=== PATIENT | male | born 2000 | race African-American/Black ===

== ENCOUNTER 2020-11-19 11:59 | Emergency (ER) | payer OTHER, BC, SELFPAY ==
[2020-11-19 12:14] VITALS: BP 160/90; BP 97/62; PULSE 100; PULSE 90; RESP 16; TEMP 35.7; O2SAT 97; BMI 20.5
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
[2020-11-19 12:49] LABS: Glucose Urine UA NEG (NEG); Leukocyte Esterase Urine NEG (NEG); Nitrite Urine NEG (NEG); Specific Gravity - Urine >= 1.030 (1.005-1.025); Urine Blood TRACE (NEG); Urine Ketones NEG (NEG); Urine Protein 1+ MG/DL (NEG-TRACE)
[2020-11-19 12:51] LABS: Appearance Urine CLEAR; Color Urine YELLOW
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
[2020-11-19 13:01] LABS: UACC CULT YES
[2020-11-19 13:02] LABS: Bacteria Urine TRACE /LPF; Mucus Urine 1+ /LPF; RBC Urine 0-2 /HPF (0); Sperm Urine NOTED; Squamous Epithelial Cell Urine TRACE /LPF
[2020-11-19 13:18] LABS: Ethanol < 10 mg/dL
[2020-11-19 13:21] LABS: Amphetamine Screen Urine Not Detected (Not Detect); Barbiturates, Urine Not Detected (Not Detect); Benzodiazepines Screen Urine Not Detected (Not Detect); Cannabinoid Screen Urine POSITIVE (Not Detect); Cocaine Screen Urine Not Detected (Not Detect); Opiate Screen Urine Not Detected (Not Detect); Phencyclidine Screen Urine Not Detected (Not Detect)
[2020-11-19 14:05] VITALS: BP 137/70; PULSE 82
--- NOTE | 2020-11-19 14:05 | PC.NURSE ---
RETURN FROM CT
== END 2020-11-19 15:18 | disposition home or self-care (01) ==
PROVIDERS: Physician Assistant; Emergency Provider Emergency Medicine
DX: R56.9 Unspecified convulsions (principal); M54.2 Cervicalgia; G44.309 Post-traumatic headache, unspecified, not intractable
CPT/HCPCS: 36415; 70450; 72125; 80307; 80320; 81001; 87086; 99284

== ENCOUNTER 2020-11-24 10:56 | Outpatient (REF) | payer OTHER, SELFPAY ==
[2020-11-24 11:34] LABS: Appearance Urine CLEAR; Color Urine YELLOW; Glucose Urine UA NEG (NEG); Leukocyte Esterase Urine NEG (NEG); Nitrite Urine NEG (NEG); PH 6.5 (5.0-8.0); Urine Blood NEG (NEG); Urine Ketones NEG (NEG); Urine Protein NEG (NEG-TRACE)
[2020-11-24 12:14] LABS: Alanine Aminotransferase 17 U/L (0-40); Albumin Level 4.7 g/dL (3.5-5.0); Alkaline Phosphatase 114 U/L (39-117); Anion Gap 11 (12-20); Aspartate Amino Transferase 21 U/L (5-37); Bilirubin Direct 0.2 mg/dL (0.0-0.5); Bilirubin Total 0.5 mg/dL (0.0-1.0); Blood Urea Nitrogen 11 mg/dL (9-16); Calcium 9.3 mg/dL (8.4-10.2); Carbon Dioxide 31 mmol/L (22-29); Chloride 103 mmol/L (96-108); Estimated Glomerular Filt Rate > 60; Glucose Random 95 mg/dL (60-115); Potassium 4.7 mmol/L (3.3-5.1); Sodium 140 mmol/L (135-145); Total Protein 7.8 g/dL (6.5-8.0)
[2020-11-24 12:23] LABS: Syphilis Screen Nonreactive (Nonreactive)
[2020-11-24 12:27] LABS: Erythrocyte Sedimentation Rate 2 MM/HR (0-15)
[2020-11-25 09:12] LABS: Lyme Abs Screen <0.90 index
== END 2020-11-24 10:57 | disposition home or self-care (01) ==
LOC: HO.LAB 10:56
PROVIDERS: PCP Pediatrics; Visit Provider Psychiatry & Neurology Neurology
DX: G40.209 Localization-related (focal) (partial) symptomatic epilepsy and epileptic syndromes with complex partial seizures, not intractable, without status epilepticus (principal)
CPT/HCPCS: 36415; 80048; 80076; 81003; 85652; 86618; 86780

== ENCOUNTER 2020-12-03 17:57 | Outpatient (REF) | payer BC, OTHER, SELFPAY ==
--- NOTE | ~2020-12-03 | MR_ITS ---
EXAMINATION: MR BRAIN WITHOUT AND WITH CONTRAST CLINICAL INFORMATION: Temporal lobe epilepsy. COMPARISON: Head CT 11/19/2020. TECHNIQUE: Multiplanar, multisequence MRI of the brain was obtained before and after the intravenous administration of 7.5 mL Gadavist. FINDINGS: There is no pathologic intracranial enhancement. Hippocampi are symmetric in size and normal in morphology without intrinsic signal abnormality. No parenchymal signal abnormality. There is no hydrocephalus, extra-axial surface collection, or herniation. The major flow voids at the skull base are preserved. There is no acute infarct on diffusion-weighted imaging. There is no intracranial hemorrhage on the gradient recalled echo acquisition. The midline structures are normal. The cerebellar tonsils are normally positioned. The cerebellum and brainstem are normal. The craniocervical junction is normal. Osseous marrow signal intensity is homogenous. The visualized soft tissues are unremarkable. MR/MR head/brain wo/w con IMPRESSION: Unremarkable MRI of the brain. No mesial temporal sclerosis. No enhancing lesions.
--- NOTE | 2020-12-15 10:16 | P.CNNE_ITS ---
History of Present Illness Data of Consult Service Date: 12/15/20 PENDING SALE TO [facility] Past Medical History Medical History No known health problems Social History Social History Alcohol intake: never Smoking Status: Never smoker Substance Use Type: Marijuana Meds Allergies Allergy/AdvReac Type Severity Reaction Status Date / Time No Known Allergies Allergy Verified 11/19/20 12:13 clams Allergy Unknown shortness Uncoded 06/26/14 00:00 of breath environmental Allergy Unknown congestion/ Uncoded 06/26/14 00:00 SOB
== END 2020-12-03 17:58 | disposition home or self-care (01) ==
LOC: HO.MRI 17:57
PROVIDERS: Visit Provider Psychiatry & Neurology Neurology
DX: G40.209 Localization-related (focal) (partial) symptomatic epilepsy and epileptic syndromes with complex partial seizures, not intractable, without status epilepticus (principal)
CPT/HCPCS: 70553; A9585

== ENCOUNTER 2024-07-31 15:08 | Outpatient (AMB) | payer BC, MEDICAID, SELFPAY ==
--- NOTE | 2024-07-31 15:05 | AM.OFFWIN_ITS ---
Intake Vital Signs 07/31/24 15:13 Height 6 ft 2 in Weight 250 lb BMI 32.1 BP 120/80 Blood Pressure Location Lt brachial Position Sitting Pulse 71 Pulse Source Pulse Oximeter Temp 99.8 F Temp Source Oral Pulse Oximetry (%) 98 Oxygen Delivery Method Room Air Intake Visit Reasons: [employer] fever, cough, sneezing Intake Note: Patient here for cough, sneezing, congestion, headaches, nausea, fevers that started a couple days ago but worsened yesterday. Patient Tobacco Use Status: Current someday Tobacco user Allergies lorazepam [From Ativan] Adverse Reaction (Mild, Verified 07/31/24 15:12) Halucinations. clams Allergy (Unknown, Uncoded 07/31/24 15:12) shortness of breath environmental Allergy (Unknown, Uncoded 07/31/24 15:12) congestion/SOB Do you need a note to return to daycare/school/sports/work: Yes HPI HPI Comments History of Present Illness Details Patient is a 24-year-old male complaining of 2 days of a cough, sneeze, congestion, headaches, nausea but no vomiting and fevers with a T-max of 101 degrees F, after taking Tylenol. He states his symptoms are getting worse each day. He states that his mom has been giving him tea with taqueria but beyond that and Tylenol, he has not tried to take any of her medications. He also tells me he has a reduced appetite. [facility] Medical History No known health problems Social History Alcohol intake: never Patient Tobacco Use Status: Current someday Tobacco user Substance Use Type: Marijuana Review of Systems Const All systems reviewed & are unremarkable except as noted in HPI and below Physical Exam Vital Signs: Last Vital Signs Temp 99.8 F 07/31/24 15:13 Pulse 71 07/31/24 15:13 BP 120/80 07/31/24 15:13 Pulse Ox 98 07/31/24 15:13 Oxygen Delivery Method Room Air 07/31/24 15:13 BMI result Body Mass Index 32.1 Const General: cooperative, healthy appearing, comfortable and no acute distress Orientation/consciousness: patient oriented x3 Limitations: no limitations HEENT Head: Yes normal to inspection Ears: hearing grossly normal bilaterally, external ears normal and unable to visualize TM bilaterally (Cerumen blockage) General nose exam: Normal external nose present, Normal nares present and No nasal discharge present Face and sinus: Yes normal facial exam and Yes sinuses nontender Mouth: Normal oral and palatal mucosa present and moist mucous membranes Throat: Yes tonsils normal, Yes uvula midline and Yes posterior oropharynx abnormal (Erythema) Eyes General: appearance normal, both eyes and all related structures Neck Neck: Yes normal visual inspection Resp Effort & Inspection: normal respiratory effort, able to speak in complete sentences, no respiratory distress, not tachypneic, no tripod positioning and no use of accessory muscles Skin General skin exam: no rashes or lesions noted Neuro General: patient oriented x3 Extrem General: Yes normal to inspection and Yes no clubbing, cyanosis or edema Assessment & Plan Assessment & Plan (1) URI (upper respiratory infection): Code(s): J06.9 - Acute upper respiratory infection, unspecified Qualifiers: URI type: unspecified URI Qualified Code(s): J06.9 - Acute upper respiratory infection, unspecified Plan: Vital signs are stable and patient is well-appearing, physical exam was unremarkable. Recommended he use [id number] medications to treat his symptoms. We did not send a respiratory panel as this is likely viral. (2) Cerumen impaction: Code(s): H61.20 - Impacted cerumen, unspecified ear Qualifiers: Laterality: bilateral Qualified Code(s): H61.23 - Impacted cerumen, bilateral Plan: He does have a bilateral cerumen blockage which we did try to scoop out quickly but he could not tolerate and he declined an ear flush. He tells me he will get Debrox drops and start using them. Educated patient on how to use them properly. Plan see above Orders: Orders Resp Pathogen Panel - [facility] [place] Today J06.9 - Acute upper respiratory infection, unspecified Coding Level of Care Code New Pt Level 3 (57810) Diagnoses Upper respiratory tract infection, unspecified type J06.9 URI type: unspecified URI Bilateral impacted cerumen H61.23 Laterality: bilateral
[2024-07-31 15:13] VITALS: BP 120/80; PULSE 71; TEMP 37.7; O2SAT 98; BMI 32.1
== END 2024-07-31 15:49 | disposition home or self-care (01) ==
PROVIDERS: PCP Pediatrics; Visit Provider Physician Assistant
DX: J06.9 Acute upper respiratory infection, unspecified (principal); H61.23 Impacted cerumen, bilateral

== ENCOUNTER 2024-07-31 15:08 | Outpatient (REF) | payer BC, SELFPAY ==
[2024-08-01 11:57] LABS: Adenovirus PCR Not Detected (Not Detect.); Bordetella parapertussis PCR Not Detected (Not Detect.); Bordetella pertussis PCR Not Detected (Not Detect.); Chlamydia pneumoniae PCR Not Detected (Not Detect.); Coronavirus 229E PCR Not Detected (Not Detect.); Coronavirus HKU1 PCR Not Detected (Not Detect.); Coronavirus NL63 PCR Not Detected (Not Detect.); Coronavirus OC43 PCR Not Detected (Not Detect.); Human metapneumovirus PCR Not Detected (Not Detect.); Influenza A PCR Not Detected (Not Detect.); Influenza B PCR Not Detected (Not Detect.); Mycoplasma pneumoniae PCR Not Detected (Not Detect.); Parainfluenza 1 PCR Not Detected (Not Detect.); Parainfluenza 2 PCR Not Detected (Not Detect.); Parainfluenza 3 PCR Not Detected (Not Detect.); Parainfluenza 4 PCR Not Detected (Not Detect.); RSV PCR Not Detected (Not Detect.); Rhino/Enterovirus PCR Not Detected (Not Detect.)
[2024-08-01 12:18] LABS: SARS-CoV-2 PCR Detected (Not Detect.)
== END 2024-07-31 15:09 | disposition home or self-care (01) ==
LOC: HO.LAB 15:08
PROVIDERS: PCP Pediatrics; Visit Provider Physician Assistant
DX: J06.9 Acute upper respiratory infection, unspecified (principal); R50.9 Fever, unspecified; R06.7 Sneezing; R05.9 Cough, unspecified; R09.89 Other specified symptoms and signs involving the circulatory and respiratory systems; R51.9 Headache, unspecified
CPT/HCPCS: 87633